=== PATIENT | female | born 1965 | race Caucasian/White ===

== ENCOUNTER 2018-09-03 06:41 | Day surgery (SDC) | payer BC ==
[2018-09-03] MEDS: NS 1,000 ML IV (06:30)
[2018-09-03] MEDS ORDERED: PROPOFOL 200 MG/20 ML VIAL As Ordered (07:04)
[2018-09-03] MEDS ORDERED: LIDOCAINE 2% INJ 100 MG/5 ML SDV (FOR ANES.) As Ordered (07:04)
== END 2018-09-03 08:40 | disposition home or self-care (01) ==
LOC: M OPP 06:41
DX: Z12.11 Encounter for screening for malignant neoplasm of colon (principal); D12.2 Benign neoplasm of ascending colon; D12.5 Benign neoplasm of sigmoid colon; F41.9 Anxiety disorder, unspecified; F17.210 Nicotine dependence, cigarettes, uncomplicated; F32.9 Major depressive disorder, single episode, unspecified; Z79.899 Other long term (current) drug therapy
CPT/HCPCS: 45385

== ENCOUNTER → 2019-04-06 | Outpatient (REF) | payer BC ==
[~2019-04-06] MED LIST: ACTO150T PO; VENL75CA47 PO
== END ==
LOC: M LABDRAW1 17:02
PROVIDERS: ATTEND Internal Medicine Endocrinology, Diabetes & Metabolism
DX: M81.0 Age-related osteoporosis without current pathological fracture (principal)

== ENCOUNTER → 2019-07-12 | Outpatient (REF) | payer BC | LOC: M LABDRAW1 15:36 | PROVIDERS: ATTEND Internal Medicine Endocrinology, Diabetes & Metabolism | DX: E55.9 Vitamin D deficiency, unspecified (principal) ==

== ENCOUNTER → 2019-12-27 | Outpatient (REF) | payer BC | LOC: M LABDRAW1 11:34 | PROVIDERS: ATTEND Internal Medicine Endocrinology, Diabetes & Metabolism | DX: E55.9 Vitamin D deficiency, unspecified (principal) ==

== ENCOUNTER 2022-05-23 10:07 | Day surgery (SDC) | payer BC ==
[~2022-05-23] VITALS: Ht 170.2 cm; Wt 66.2 kg
[~2022-05-23 10:07] MED LIST changes: +CALC600T61 PO; +D3 M1CAP2 PO; +NS 1,000 ML IV ONE; +VENL37.598 PO
[2022-05-23] MEDS ORDERED: LIDOCAINE 2% 100MG/5ML SDV (FOR ANES.) As Ordered ONE (12:26)
[2022-05-23] MEDS ORDERED: propofoL 200 MG/20 ML VIAL As Ordered ONE (12:26)
[2022-05-23 13:15] VITALS: BP 157/74
== END 2022-05-23 13:16 | disposition home or self-care (01) ==
LOC: M OPP 10:07
PROVIDERS: ATTEND Surgery
DX: Z86.010 Personal history of colon polyps (principal); M81.0 Age-related osteoporosis without current pathological fracture; F41.9 Anxiety disorder, unspecified; F32.A Depression, unspecified; F17.210 Nicotine dependence, cigarettes, uncomplicated; Z79.899 Other long term (current) drug therapy